=== PATIENT | male | born 1975 | race Caucasian/White ===

== ENCOUNTER 2022-11-19 07:31 | Emergency (ER) | payer BC, SELFPAY ==
[2022-11-19 07:37] VITALS: BP 147/96; PULSE 85; RESP 18; TEMP 36.8; O2SAT 98; BMI 28.0
[2022-11-19 07:46] VITALS: BP 147/96; PULSE 83; RESP 16; O2SAT 97
--- NOTE | 2022-11-19 08:07 | ED_ITS ---
HPI - Ear Problem General: Chief complaint: Ear Stated complaint: left ear pain Time Seen by Provider: 11/19/22 07:51 Source: patient History of Present Illness: 47-year-old male presents to the emergency room with complaint of left ear pain began several days ago progressively worse this morning he woke up and his hearing feels muffled in that ear is painful whenever he moves the ear. He had been doing some welding just prior to it starting he is concerned he may have gotten something inside the ear canal. He has not really noticed any drainage he notes it is worse if he pulls on the auricle or if he chews or swallows. MD Complaint: ear pain Location: left ear Duration: constant Severity: moderate Relieving factors: nothing Exacerbating factors: palpation Associated symptoms: Reports ear or mastoid pain, external ear pain, hearing loss and neck pain; Denies fever(s), headache(s), rhinorrhea or tinnitus Treatment prior to arrival: none Review of Systems Const: Denies: fever(s) ENMT: Reports: ear or mastoid pain; Denies: tinnitus Card: Denies: chest pain, edema, dyspnea on exertion or orthopnea Resp: Denies: dyspnea, productive cough or non-productive cough GI: Denies: abdominal pain, nausea or vomiting : Denies: flank pain, dysuria, urinary frequency or urinary urgency Musc: Reports: neck pain Skin/Breast: Denies: rash or pruritus Neuro: Denies: headache(s) Physical Exam Const: COMMON NORMALS: no acute distress GENERAL APPEARANCE: cooperative and comfortable ORIENTATION/CONSCIOUSNESS: Yes awake, Yes oriented to person, Yes oriented to place and Yes oriented to time HENMT: COMMON NORMALS: normocephalic and atraumatic HEAD & SCALP: normocephalic and atraumatic Eye: OTHER: Examination of the left ear the external auditory canal is swollen and inflamed there is small amount of exudate TM itself portion visualized not appear acutely inflamed or infected there is no drainage at this time. The auricle itself has no swelling or inflammation no thickening or induration. Resp: COMMON NORMALS: normal respiratory effort, No retractions, No use of accessory muscles and clear to auscultation bilaterally AUSCULTATION: clear to auscultation bilaterally Cardio: COMMON NORMALS: regular rate, regular rhythm and No murmurs present (Cardio) RATE: regular rate RHYTHM: regular rhythm Extremity: COMMON NORMALS: normal to inspection, capillary refill normal, no clubbing, cyanosis or edema, no calf tenderness and no pedal edema Neuro: SENSORIUM/ORIENTATION: Yes oriented to person, Yes oriented to place and Yes oriented to time Skin: COMMON NORMALS: no rashes or lesions noted GENERAL SKIN EXAM: no r ashes or lesions noted Course Vital Signs: Vital signs: Vital Signs Temperature 98.2 F 11/19/22 07:37 Pulse Rate 83 11/19/22 07:46 Respiratory Rate 16 11/19/22 07:46 Blood Pressure 147/96 11/19/22 07:46 Pulse Oximetry 97 11/19/22 07:46 Oxygen Delivery Me thod Room Air 11/19/22 07:46 MDM - Ear Medical Decision Making Otitis externa mild start drops 4 x 4 drops 4 times daily for 10 days if no improvement follow-up with primary care return if has further problems. No radiology studies performed this visit Discharge Plan Discharge Patient Disposition: Home Clinical Impression: Otitis externa Condition: Stable Prescriptions: New Cortisporin-TC 3.3-3-10-0.5 mg/mL drops,suspension 4 drp otic (ear) QID Qty: 10 0RF Rx Instructions: Left ear Discharge Orders: Discharge ED (Routine); Ordered 11/19/22 Ordered By: Ji Baez Discharge Diet: Usual diet Discharge Activity: Increase activity as tolerated Patient Instructions: Otitis Externa - Adult, Opioid Safety, Pain Management Activity Restrictions/Additional Instructions: Complete 10 days of the eardrops in the left ear 4 times daily. If symptoms persist beyond 10 days follow-up with primary care doctor Coding Level of Care Code ED [employer] for Yury Cortes
[2022-11-19 08:17] VITALS: BP 147/96; PULSE 80; RESP 18; O2SAT 97
== END 2022-11-19 08:19 | disposition home or self-care (01) ==
PROVIDERS: Emergency Provider Family Medicine
DX: H60.392 Other infective otitis externa, left ear (principal)
CPT/HCPCS: 99283